=== PATIENT | female | born 1995 | race Caucasian/White ===

== ENCOUNTER 2017-11-06 11:37 | Emergency (ER) | payer MEDICAID ==
[2017-11-06 12:44] LABS: ADD MAN DIFF? NO
[2017-11-06 12:48] LABS: BASOPHILS % 0.3 % (0.0-2.0); EOSINOPHILS # 0.3 10^3/ul (0.0-0.5); EOSINOPHILS % 3.1 % (0.0-7.0); HEMATOCRIT 38.5 % (37.0-47.0); HEMOGLOBIN 12.8 g/dl (12.0-16.0); LYMPHOCYTES # 1.7 10^3/ul (0.8-2.9); MEAN CORPUSCULAR HGB CONC 33.2 g/dl (32.0-37.0); MEAN CORPUSCULAR VOLUME 84.2 fl (82.0-101.0); MEAN PLATELET VOLUME 9.2 fl (7.4-10.4); MONOCYTE # 0.4 10^3/ul (0.3-0.9); MONOCYTES % 4.1 % (0.0-11.0); NEUTROPHIL # 7.9 10^3/ul (1.6-7.5); PLATELET COUNT 299 10^3/UL (140-415); RED BLOOD COUNT 4.57 10^6/ul (4.20-5.40); RED CELL DISTRIBUTION WIDTH 13.1 % (11.5-14.5)
[2017-11-06 12:48] LABS: WHITE BLOOD COUNT 10.4 10^3/ul (4.8-10.8)
[2017-11-06 13:01] LABS: ADD UMIC NO; UR ASCORBIC ACID NEGATIVE (NEGATIVE); UR BILIRUBIN (Dip) NEGATIVE (NEGATIVE); UR BLOOD (Dip) NEGATIVE (NEGATIVE); UR CLARITY CLEAR (CLEAR); UR COLOR YELLOW (YELLOW); UR GLUCOSE (Dip) NEGATIVE (NEGATIVE); UR KETONES (Dip) 1+ mg/dL (NEGATIVE); UR LEUKOCYTE ESTERASE (Dip) NEGATIVE Leu/ul (NEGATIVE); UR NITRITE (Dip) NEGATIVE (NEGATIVE); UR SPECIFIC GRAVITY (Dip) 1.013 (1.003-1.030); UR TOTAL PROTEIN (Dip) NEGATIVE (NEGATIVE); UR UROBILINOGEN (Dip) NEGATIVE (NEGATIVE)
[2017-11-06 13:04] LABS: ALANINE AMINOTRANSFERASE 21 IU/L (13-69); ALBUMIN 3.8 g/dl (3.3-4.9); ALBUMIN/GLOBULIN RATIO 1.11; ALKALINE PHOSPHATASE 88 IU/L (42-121); ANION GAP 13 (8-16); ASPARTATE AMINO TRANSFERASE 15 IU/L (15-46); BILIRUBIN,INDIRECT 0.1 mg/dl (0-1.1); BILIRUBIN,TOTAL 0.1 mg/dl (0.2-1.3); BLOOD UREA NITROGEN 5 mg/dl (7-20); CALCIUM 8.9 mg/dl (8.4-10.2); CARBON DIOXIDE 25 mmol/L (21-31); CHLORIDE 103 mmol/L (97-110); GLUCOSE 82 mg/dl (70-220); POTASSIUM 3.9 mmol/L (3.5-5.1); SODIUM 137 mmol/L (135-144); TOTAL PROTEIN 7.2 g/dl (6.1-8.1)
[2017-11-06 13:10] LABS: AMPHETAMINE/METHAMPHETAMINE Negative (NEGATIVE); BARBITURATES Negative (NEGATIVE); BENZODIAZEPINES Negative (NEGATIVE); CANNABINOIDS Negative (NEGATIVE); COCAINE Negative (NEGATIVE); OPIATES Negative (NEGATIVE)
== END 2017-11-06 16:57 | disposition home or self-care (01) ==
LOC: E/R 11:37
DX: O99.89 Other specified diseases and conditions complicating pregnancy, childbirth and the puerperium (principal); O99.281 Endocrine, nutritional and metabolic diseases complicating pregnancy, first trimester; E16.2 Hypoglycemia, unspecified; R10.2 Pelvic and perineal pain; R55 Syncope and collapse; Z3A.13 13 weeks gestation of pregnancy
CPT/HCPCS: 36415; 76801; 80053; 80307; 81003; 82962; 84702; 85025; 86900; 86901; 93005; 99285-25

== ENCOUNTER 2018-04-18 18:56 | Outpatient (CLI) | payer MEDICAID ==
[2018-04-18 21:23] LABS: RUPTURE FETAL MEMBRANES NEGATIVE (NEGATIVE)
== END 2018-04-18 21:53 | disposition home or self-care (01) ==
LOC: OBT 18:56 → L-D 18:57
DX: O41.91X0 Disorder of amniotic fluid and membranes, unspecified, first trimester, not applicable or unspecified (principal); Z3A.01 Less than 8 weeks gestation of pregnancy
CPT/HCPCS: 76818; 84112

== ENCOUNTER 2018-05-03 20:24 | Outpatient (CLI) | payer MEDICAID ==
[2018-05-03 22:44] LABS: RUPTURE FETAL MEMBRANES NEGATIVE (NEGATIVE)
== END 2018-05-04 00:20 | disposition home or self-care (01) ==
LOC: OBT 20:24 → L-D 20:25
DX: O47.1 False labor at or after 37 completed weeks of gestation (principal); Z3A.39 39 weeks gestation of pregnancy
CPT/HCPCS: 76815; 76818; 84112

== ENCOUNTER 2018-05-13 10:50 | Inpatient (IN) | payer MEDICAID ==
[2018-05-13] MEDS ORDERED: OXYTOCIN 30 UNITS/LR 500 ML IV ×2 (11:30→13:00)
[2018-05-13] MEDS ORDERED: CARBOPROST 250 MCG INJ IM (11:30)
[2018-05-13] MEDS ORDERED: IBUPROFEN 600 MG TAB PO (11:30)
[2018-05-13] MEDS ORDERED: LIDOCAINE 1% (MPF) 30 ML INJ INJ (11:30)
[2018-05-13] MEDS: LACTATED RINGER'S 1,000 ML IV* ×4 (11:54→22:40)
[2018-05-13] MEDS: MISOPROSTOL 25 MCG CAPSULE PO ×3 (13:50→21:00)
[2018-05-13 13:58] LABS: ADD MAN DIFF? NO
[2018-05-13 14:02] LABS: BASOPHILS % 0.2 % (0.0-2.0); EOSINOPHILS # 0.2 10^3/ul (0.0-0.5); EOSINOPHILS % 1.6 % (0.0-7.0); HEMATOCRIT 34.5 % (37.0-47.0); HEMOGLOBIN 10.8 g/dl (12.0-16.0); LYMPHOCYTES # 2.8 10^3/ul (0.8-2.9); LYMPHOCYTES % 24.4 % (15.0-51.0); MEAN CORPUSCULAR HEMOGLOBIN 24.7 pg (29.0-33.0); MEAN CORPUSCULAR HGB CONC 31.3 g/dl (32.0-37.0); MEAN CORPUSCULAR VOLUME 78.9 fl (82.0-101.0); MEAN PLATELET VOLUME 10.2 fl (7.4-10.4); MONOCYTE # 0.8 10^3/ul (0.3-0.9); MONOCYTES % 7.2 % (0.0-11.0); NEUTROPHIL # 7.6 10^3/ul (1.6-7.5); PLATELET COUNT 390 10^3/UL (140-415); RED BLOOD COUNT 4.37 10^6/ul (4.20-5.40); RED CELL DISTRIBUTION WIDTH 15.9 % (11.5-14.5)
[2018-05-13 14:02] LABS: WHITE BLOOD COUNT 11.5 10^3/ul (4.8-10.8)
[2018-05-13 14:23] LABS: INR 0.89; PROTIME 12.1 Sec (11.9-14.9); PT RATIO 0.9
[2018-05-13 14:24] LABS: PARTIAL THROMBOPLASTIN TIME 29.9 Sec (25.0-35.0)
[2018-05-13 15:28] LABS: RAPID PLASMA REAGIN NONREACTIVE (NR)
[2018-05-13] MEDS: BUTORPHANOL 2 MG INJ IV (20:23)
[2018-05-13] MEDS ORDERED: FENTAnyl 2MCG/ML-ROPIV 0.2% 100 ML (22:25)
[2018-05-13] MEDS ORDERED: NALOXONE (0.4 MG/ML) INJ IV (22:30)
[2018-05-14] MEDS: MISOPROSTOL 25 MCG CAPSULE PO (01:00)
[2018-05-14] MEDS: MISOPROSTOL 200 MCG TAB PR (02:26)
[2018-05-14] MEDS: OXYTOCIN 30 UNITS/LR 500 ML IV ×3 (02:27→06:27)
[2018-05-14] MEDS: METHYLERGONOVINE 0.2 MG INJ IM (02:27)
[2018-05-14] MEDS ORDERED: DEXTROSE 5%-LR 1,000 ML IV (04:13)
[2018-05-14] MEDS ORDERED: CARBOPROST 250 MCG INJ IM (04:30)
[2018-05-14] MEDS ORDERED: ZOLPIDEM 5 MG TAB PO (04:30)
[2018-05-14] MEDS ORDERED: MAGNESIUM HYDROXIDE 30ML CUP PO (04:30)
[2018-05-14] MEDS ORDERED: OXYCODONE/ASPIRIN (4.88/325) TAB PO (04:30)
[2018-05-14] MEDS ORDERED: DIBUCAINE 1% 30 GM OINT PR (04:30)
[2018-05-14] MEDS ORDERED: MISOPROSTOL 200 MCG TAB PR (04:30)
[2018-05-14] MEDS ORDERED: ONDANSETRON 4 MG INJ IV (04:30)
[2018-05-14] MEDS ORDERED: METHYLERGONOVINE 0.2 MG INJ IM (04:30)
[2018-05-14] MEDS ORDERED: DIPHENHYDRAMINE 50 MG INJ IV (04:30)
[2018-05-14] MEDS: IBUPROFEN 800 MG TAB PO ×3 (06:15→21:47)
[2018-05-14] MEDS: WITCH HAZEL/GLYCERIN PAD PR (09:01)
[2018-05-14] MEDS: SENNA/DOCUSATE NA (8.6MG/50MG) TAB PO (09:01)
[2018-05-14] MEDS: LANOLIN 7 GM TUBE TOP (09:02)
[2018-05-14] MEDS: BENZOCAINE 20% 56 ML SPRAY TOP (09:02)
[2018-05-14] MEDS: ACETAMINOPHEN 325 MG TAB PO (09:11)
[2018-05-14] MEDS: LACTATED RINGER'S 1,000 ML IV* ×3 (12:13→20:13)
[2018-05-15] MEDS: LACTATED RINGER'S 1,000 ML IV* ×3 (04:13→20:13)
[2018-05-15] MEDS: IBUPROFEN 800 MG TAB PO ×3 (05:36→21:35)
[2018-05-15 10:06] LABS: ADD MAN DIFF? NO
[2018-05-15 10:10] LABS: WHITE BLOOD COUNT 15.2 10^3/ul (4.8-10.8)
[2018-05-15 10:10] LABS: BASOPHILS % 0.3 % (0.0-2.0); EOSINOPHILS # 0.3 10^3/ul (0.0-0.5); EOSINOPHILS % 2.1 % (0.0-7.0); HEMATOCRIT 25.6 % (37.0-47.0); LYMPHOCYTES # 3.1 10^3/ul (0.8-2.9); LYMPHOCYTES % 20.7 % (15.0-51.0); MEAN CORPUSCULAR HEMOGLOBIN 24.3 pg (29.0-33.0); MEAN CORPUSCULAR HGB CONC 31.3 g/dl (32.0-37.0); MEAN CORPUSCULAR VOLUME 77.8 fl (82.0-101.0); MONOCYTE # 1.1 10^3/ul (0.3-0.9); MONOCYTES % 7.2 % (0.0-11.0); NEUTROPHIL # 10.5 10^3/ul (1.6-7.5); NEUTROPHILS % 69.2 % (39.0-77.0); PLATELET COUNT 292 10^3/UL (140-415); RED BLOOD COUNT 3.29 10^6/ul (4.20-5.40)
[2018-05-16] MEDS: LACTATED RINGER'S 1,000 ML IV* (04:13)
[2018-05-16] MEDS: IBUPROFEN 800 MG TAB PO ×2 (05:50→14:00)
[2018-05-16] MEDS: MEASLES,MUMPS,RUBELLA VACCINE INJ SC* (09:00)
[2018-05-16] MEDS: DIPHTH/TET/ACEL PERTUSS (ADULT) 0.5 ML VIAL IM* (09:00)
== END 2018-05-16 17:28 | disposition home or self-care (01) | DRG 775 ==
LOC: L-D 05-14 03:22 → PP1 05-14 04:43
PROVIDERS: Obstetrics & Gynecology
PROC: 3E0P7VZ Introduction of Hormone into Female Reproductive, Via Natural or Artificial Opening (ICD-10-PCS; 2018-05-13 11:00)
DX: O70.0 First degree perineal laceration during delivery (principal); Z3A.40 40 weeks gestation of pregnancy; Z37.0 Single live birth
CPT/HCPCS: 62319; 76815; 85025; 85610; 85730; 86592; 86850; 86900; 86901; 99464